=== PATIENT | female | born 1980 | race Caucasian/White ===

== ENCOUNTER 2016-10-06 18:17 | Emergency (ER) | payer SELFPAY ==
[~2016-10-06] VITALS: Ht 165.1 cm; Wt 64.0 kg
[~2016-10-06 18:17] MED LIST: DICL75 PO
[2016-10-06 18:19] VITALS: BP 122/70; PULSE 97; RESP 20; TEMP 98.1; O2SAT 98
[2016-10-06] MEDS ORDERED: CLINDAMYCIN INJ 900 MG in SODIUM CHLORIDE 0.9% INJ 100 ML IV ONE (18:45)
[2016-10-06] MEDS ORDERED: SODIUM CHLORIDE 0.9% FLUSH 10 ML FLUSH IVF PRN (18:45)
[2016-10-06] MEDS ORDERED: methylPREDNISolone SOD SUCC 125 MG/2 ML VIAL IV PUSH ONE (18:45)
--- NOTE | 2016-10-06 18:45 | PD ---
HPI Chief Complaint: Bite or Sting Time Seen by Provider: 18:39 Travel History International Travel<30 days: No Contact w/Intl Traveler<30days: No Traveled to known affect area: No History of Present Illness HPI Patient is a 36-year-old female presenting to emergency evaluation of a bite to her right forearm. Patient states she started having pain on Saturday but did not notice the redness and swelling until today. She denies any fevers, chills , nausea, vomiting, headaches. She states she took ibuprofen one hour ago, 800 mg for the pain. She reports the pain is a 10 out of 10 currently. No IV drug use. PFSH Past Medical History ADD: Yes Asthma: Yes COPD: Yes Past Surgical History Abdominal Surgery: Yes (exploratory lap) Social History Tobacco Use: Yes Allergies-Medications (Allergen,Severity, Reaction): Coded Allergies: Penicillin (Verified Allergy, Severe, SEIZURES COMA, 10/06/16) Reported Meds & Prescriptions Reported Meds & Active Scripts Active No Active Prescriptions or Reported Medications Review of Systems Except as stated in HPI: all other systems reviewed are Neg Musculoskeletal: Positive: Edema Skin: Positive Itching, Positive Change in Pigmentation, Positive Lesions Physical Exam Narrative GENERAL: Well-developed, well-nourished, alert female. Resting comfortably in no acute distress SKIN: Focused skin assessment warm/dry. 2 mm crusted lesion to the anterior right forearm, surrounding erythema and edema measuring 10 cm x 7 cm. There is a 2 mm crusted lesion to the right upper arm posteriorly, induration measures 10 cm x 9 cm approximately. 2+ radial pulse, brisk less than 3 second capillary refill. Mildly tender to palpation. HEAD: Atraumatic. Normocephalic. EYES: Pupils equal and round. No scleral icterus. No injection or drainage. ENT: No nasal bleeding or discharge. Mucous membranes pink and moist. NECK: Trachea midline. No JVD. CARDIOVASCULAR: Regular rate and rhythm. No murmur appreciated. RESPIRATORY: No accessory muscle use. Clear to auscultation. Breath sounds equal bilaterally. GASTROINTESTINAL: Abdomen soft, non-tender, nondistended. Hepatic and splenic margins not palpable. MUSCULOSKELETAL: No obvious deformities. No clubbing. No cyanosis. NEUROLOGICAL: Awake and alert. No obvious cranial nerve deficits. Motor grossly within normal limits. Normal speech. PSYCHIATRIC: Appropriate mood and affect; insight and judgment normal. Data Data Last Documented VS Vital Signs Date Time Temp Pulse Resp B/P Pulse Ox O2 Delivery O2 Flow Rate FiO2 10/06/16 18:54 16 10/06/16 18:19 98.1 97 122/70 98 Room Air Orders Basic Metabolic Panel (Bmp) (10/06/16 18:37) Complete Blood Count With Diff (10/06/16 18:37) Iv Access Insert/Monitor (10/06/16 18:37) Sodium Chloride 0.9% Flush (Ns Flush) (10/06/16 18:45) Clindamycin Inj (Cleocin Inj) (10/06/16 18:45) Methylprednisolone So Succ Inj (Solumedr (10/06/16 18:45) Potassium Chloride (Kcl) (10/06/16 20:15) Labs Laboratory Tests Test 10/06/16 18:50 White Blood Count 6.7 TH/MM3 Red Blood Count 3.67 MIL/MM3 Hemoglobin 12.6 GM/DL Hematocrit 36.3 % Mean Corpuscular Volume 99.0 FL Mean Corpuscular Hemoglobin 34.3 PG Mean Corpuscular Hemoglobin 34.7 % Concent Red Cell Distribution Width 12.7 % Platelet Count 160 TH/MM3 Mean Platelet Volume 10.1 FL Neutrophils (%) (Auto) 46.1 % Lymphocytes (%) (Auto) 42.8 % Monocytes (%) (Auto) 8.3 % Eosinophils (%) (Auto) 2.4 % Basophils (%) (Auto) 0.4 % Neutrophils # (Auto) 3.1 TH/MM3 Lymphocytes # (Auto) 2.9 TH/MM3 Monocytes # (Auto) 0.6 TH/MM3 Eosinophils # (Auto) 0.2 TH/MM3 Basophils # (Auto) 0.0 TH/MM3 CBC Comment DIFF FINAL Differential Comment Sodium Level 139 MEQ/L Potassium Level 3.3 MEQ/L Chloride Level 106 MEQ/L Carbon Dioxide Level 26.4 MEQ/L Anion Gap 7 MEQ/L Blood Urea Nitrogen 8 MG/DL Creatinine 0.71 MG/DL Estimat Glomerular Filtration 93 ML/MIN Rate Random Glucose 104 MG/DL Calcium Level 8.4 MG/DL MDM Medical Decision Making Medical Screen Exam Complete: Yes Emergency Medical Condition: Yes Interpretation(s) Laboratory Tests Test 10/06/16 18:50 White Blood Count 6.7 TH/MM3 Red Blood Count 3.67 MIL/MM3 Hemoglobin 12.6 GM/DL Hematocrit 36.3 % Mean Corpuscular Volume 99.0 FL Mean Corpuscular Hemoglobin 34.3 PG Mean Corpuscular Hemoglobin 34.7 % Concent Red Cell Distribution Width 12.7 % Platelet Count 160 TH/MM3 Mean Platelet Volume 10.1 FL Neutrophils (%) (Auto) 46.1 % Lymphocytes (%) (Auto) 42.8 % Monocytes (%) (Auto) 8.3 % Eosinophils (%) (Auto) 2.4 % Basophils (%) (Auto) 0.4 % Neutrophils # (Auto) 3.1 TH/MM3 Lymphocytes # (Auto) 2.9 TH/MM3 Monocytes # (Auto) 0.6 TH/MM3 Eosinophils # (Auto) 0.2 TH/MM3 Basophils # (Auto) 0.0 TH/MM3 CBC Comment DIFF FINAL Differential Comment Sodium Level 139 MEQ/L Potassium Level 3.3 MEQ/L Chloride Level 106 MEQ/L Carbon Dioxide Level 26.4 MEQ/L Anion Gap 7 MEQ/L Blood Urea Nitrogen 8 MG/DL Creatinine 0.71 MG/DL Estimat Glomerular Filtration 93 ML/MIN Rate Random Glucose 104 MG/DL Calcium Level 8.4 MG/DL Vital Signs Date Time Temp Pulse Resp B/P Pulse Ox O2 Delivery O2 Flow Rate FiO2 10/06/16 18:19 98.1 97 20 122/70 98 Room Air Differential Diagnosis Cellulitis versus contact dermatitis versus bite versus abscess versus other Narrative Course Patient is a 36-year-old female presenting to emergency for evaluation of one day of right arm pain and redness. Patient has 2 lesions on her arm or to some insect bite or sting. Cellulitis is not circumferential. Patient's vital signs are stable, labs ordered and pending. CBC shows no acute findings, chemistry with potassium of 3.3. This was replaced with oral supplementation. Patient was given first dose of IV clindamycin in the emergency department. She was encouraged to have antibiotic prescription filled tonight and continue dosing every 8 hours until completed. She was educated to return to emergency department immediately if redness continued to spread beyond marked borders despite antibiotic therapy. She verbalized understanding of discharge instructions as well as need for follow-up. Patient is stable for discharge. Diagnosis Primary Impression: Cellulitis Qualified Code: L03.113 - Cellulitis of right upper extremity Referrals: [facility] Primary Care Physician Patient Instructions: Cellulitis (ED), General Instructions Additional Instructions: Complete full course of antibiotics as prescribed Keep extremity elevated Return to emergency department immediately for any new or worsening symptoms Follow-up with your primary doctor Med/Other Pt SpecificInfo: Prescription(s) given Scripts Ibuprofen 800 Mg [id number] Mg PO Q6HR PRN (PAIN) #40 TAB Ref 0 Prov:Eileen Dick 10/06/16 Clindamycin 150 Mg [id number] Mg PO Q8HR 10 Days Ref 0 Prov:Eileen Dick 10/06/16 Disposition: 01 DISCHARGE HOME Condition: Stable Eileen Dick Oct 06, 2016 18:45
[2016-10-06 19:41] LABS: AUTOMATED NEUTROPHIL # 3.1 TH/MM3 (1.8-7.7); BASOPHIL % 0.4 % (0.0-2.0); EOSINOPHIL # 0.2 TH/MM3 (0-0.4); EOSINOPHIL % 2.4 % (0.0-4.0); HEMATOCRIT 36.3 % (35.0-46.0); HEMO FLAGS DIFF FINAL; LYMPH % 42.8 % (9.0-44.0); LYMPHOCYTE # 2.9 TH/MM3 (1.0-4.8); MEAN CORPUSCULAR HEMOGLOBIN 34.3 PG (27.0-34.0); MEAN CORPUSCULAR HGB CONC 34.7 % (32.0-36.0); MONO % 8.3 % (0.0-8.0); NEUT % 46.1 % (16.0-70.0); PLATELET COUNT 160 TH/MM3 (150-450); RED BLOOD COUNT 3.67 MIL/MM3 (4.00-5.30); RED CELL DISTRIBUTION WIDTH 12.7 % (11.6-17.2); WHITE BLOOD COUNT 6.7 TH/MM3 (4.0-11.0)
[2016-10-06 20:01] LABS: BICARBONATE 26.4 MEQ/L (21.0-32.0); POTASSIUM 3.3 MEQ/L (3.5-5.1)
[2016-10-06] MEDS ORDERED: POTASSIUM CHLORIDE 10 MEQ CONTROLLED RELEASE TAB PO ONE (20:15)
[2016-10-06] MEDS ORDERED: IBUP800T23 PO (20:24)
[2016-10-06] MEDS ORDERED: CLIN1CAP5 PO (20:24)
== END 2016-10-06 20:43 | disposition home or self-care (01) ==
LOC: NEPD 18:17
DX: L03.113 Cellulitis of right upper limb (principal); Z88.0 Allergy status to penicillin
CPT/HCPCS: 80048; 85025; 96365; 96375; 99284; J2930